=== PATIENT | female | born 1995 | race Caucasian/White ===

== ENCOUNTER 2020-12-12 09:58 | Emergency (ER) | payer BC ==
[~2020-12-12] VITALS: Ht 170.2 cm; Wt 56.2 kg
--- NOTE | 2020-12-12 10:35 | NUR ---
Patient discharged to home in stable condition. Written and verbal after care instructions given. Patient verbalizes understanding of instructions. Stressed follow up or return to ER for worsening s/s.
== END 2020-12-12 10:43 | disposition home or self-care (01) ==
LOC: ER 09:58
DX: B00.1 Herpesviral vesicular dermatitis (principal)
CPT/HCPCS: A4663